=== PATIENT | male | born 1970 | race Caucasian/White ===

== ENCOUNTER 2025-03-23 11:57 | Emergency (ER) | payer SELFPAY ==
[2025-03-23 12:01] VITALS: BP 156/93; PULSE 77; RESP 12; TEMP 36.9; O2SAT 98; BMI 33.8
--- NOTE | 2025-03-23 12:04 | EKG12_ITS ---
Test Reason : CP Blood Pressure : */* mmHG Vent. Rate : 69 BPM Atrial Rate : 69 BPM P-R Int : 182 ms QRS Dur : 100 ms QT Int : 366 ms P-R-T Axes : 42 2 24 degrees QTcB Int : 392 ms Normal sinus rhythm Septal infarct , age undetermined Abnormal ECG Confirmed by DRAKE ARANDA, MENDOZA ([id number]), video editor RISA LATHAM ([id number]) on 03/25/2025 6:09:34 AM Referred By: EDGARDO/MARYCARMEN Confirmed By: MENDOZA JUAN MD
--- NOTE | 2025-03-23 12:04 | RAD_ITS ---
PROCEDURE: CHEST PA AND LATERAL 03/23/2025 REASON FOR EXAM: CHEST PAIN TECHNIQUE: CHEST PA AND LATERAL FINDINGS: The heart is normal in size. The lungs are clear. No acute osseous abnormalities. RAD/Chest PA and Lateral IMPRESSION: NO ACUTE FINDINGS. Reading Location: [id number]
[2025-03-23 12:14] LABS: Hematocrit 44.1 % (40-54); Hemoglobin 15.1 g/dL (13.0-16.5); Immature Granulocytes Count 0.040 X10^3/uL (0.0-0.0); Mean Corp Hgb Conc 34.2 g/dL (32-36); Mean Corpuscular Volume 90.9 fL (80-94); Mean Platelet Vol. 10.9 fl (6.2-12.0); NRBC Flagged by Analyzer 0 % (0-5); Platelet Count 264 K/mm3 (150-450); RBC Distribution Width CV 12.8 % (11.6-14.6); RBC Distribution Width SD 42.5 fl (35.1-43.9); Red Blood Count 4.85 M/mm3 (4.6-6.2); White Blood Count 7.0 K/mm3 (4.4-11.0)
--- NOTE | 2025-03-23 12:29 | ED.VIS.CHEST ---
HPI History of Present Illness Chief Complaint: Chest Pain Narrative Narrative: Patient is a 55-year-old male presenting to the emergency department for chest pain that started today. Patient has a prior history of an AK. He states that he was on the bus where other people were smoking marijuana and he thinks it exacerbated his allergies. States that he initially developed shortness of breath which felt typical of his allergies and then developed left sided chest pain that he describes as tightness. He denies any radiation of the pain anywhere. Denies any pressure-like pain. States that EMS gave him aspirin and nitro and he is now having improvement of his pain. He denies fever, chills, abdominal pain, nausea, vomiting, diarrhea. Denies any diaphoresis. States that sometimes he develops chest pain like this when he gets anxious. PFSH PFSH Medical History no medical history Home Medications ?Medication ?Instructions ?Recorded ?Last Taken ?Type atorvastatin 80 mg tablet 80 mg PO DAILY 03/23/25 03/23/25 History escitalopram oxalate 10 mg tablet 10 mg PO DAILY 03/23/25 Unknown History ezetimibe 10 mg tablet 10 mg PO DAILY 03/23/25 Unknown History lisinopril 40 mg tablet 40 mg PO DAILY 03/23/25 03/23/25 History metoprolol succinate 50 mg 50 mg PO DAILY 03/23/25 03/23/25 History tablet,extended release 24 hr omeprazole 20 mg tablet,delayed 20 mg PO BID 03/23/25 03/23/25 History release Allergy/AdvReac Type Severity Reaction Status Date / Time No Known Allergies Allergy Verified 03/23/25 12:21 Family History no significant family his Surgical History no surgical history Social History Smoking Status: Former smoker ROS ROS ED ROS Narrative see HPI EXAM Physical Exam Narrative Exam Narrative: Vital signs: Reviewed General: Alert and oriented. No acute distress HEENT: Head is normocephalic and atraumatic, sinuses nontender, pupils equal round and reactive. Nares are patent. Oropharynx and throat exams normal. Neck: Supple without lymphadenopathy nontender Cardiovascular: Regular rate and rhythm, no murmurs. No rubs or gallops. Normal S1 and S2 Respiratory: Clear to auscultation bilaterally. No wheezes, rales, rhonchi Abdominal: Soft and nontender. Normal bowel sounds. No guarding or rebound. Nonsurgical abdomen Extremities: No tenderness. No bruising. Normal range of motion. Normal sensation. Skin: No rash or redness. Neurological: Cranial nerves II through XII are grossly intact. Normal strength and sensation. Normal cerebellar function The rest of the physical exam is unremarkable Const Vital Signs: 03/23/25 12:01 03/23/25 12:58 03/23/25 13:30 Temperature 98.4 F Temperature Source Oral Pulse Rate 77 62 64 Respiratory Rate 12 18 15 Blood Pressure 156/93 H 115/77 134/84 H Blood Pressure Mean 114 89 100 Pulse Ox 98 95 94 Oxygen Delivery Method Room Air Room Air 03/23/25 15:06 Temperature 98.7 F Temperature Source Pulse Rate 71 Respiratory Rate 16 Blood Pressure 123/77 H Blood Pressure Mean 92 Pulse Ox 100 Oxygen Delivery Method MDM MDM MDM Narrative Medical decision making narrative: Patient is a 55-year-old male presenting to the emergency department for chest pain. Patient was seen and examined. Vitals are stable. Patient resting in bed comfortably in no acute distress. Differential includes but is not limited to: ACS, pneumonia, asthma exacerbation, pneumothorax, less likely aortic dissection or PE No tachycardia or hypoxia to suspect PE. No significant risk factors. No tearing or ripping chest pain, no significant hypertension on exam. Pulses are equal throughout. Patient has already received aspirin and nitro. EKG shows normal sinus rhythm. There is ST elevation in V2 only that is about 2 mm, but no other notable ST elevation or reciprocal depression. No EKGs to compare to given his prior heart attack. CBC with no leukocytosis and a normal hemoglobin. BMP without significant abnormalities. Initial troponin of 8, reflex of 8. Patient states that the chest pain resolved mostly after the breathing treatment. Chest x-ray shows no acute radiographic abnormalities. 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 Patient discharged from the Emergency Department. I do not feel that the patient's evaluation reveals any acute reason for admission at this time. I instructed them to either follow-up with their primary care physician or promptly return to the Emergency Department for reevaluation should symptoms worsen or new symptoms develop. I explained what symptoms would indicate the need to return to the emergency department. Shared decision making was used. The patient voiced understanding of the treatment plan and is agreeable with it. Clinical impression: Chest pain Lab Data Labs: Laboratory Results - last 24 hr 03/23/25 03/23/25 11:43 13:48 WBC 7.0 RBC 4.85 Hgb 15.1 Hct 44.1 MCV 90.9 MCH 31.1 MCHC 34.2 RDW Std Deviation 42.5 RDW Coeff of Tyler 12.8 Plt Count 264 MPV 10.9 Immature Gran % (Auto) 0.600 Neut % (Auto) 62.6 Lymph % (Auto) 25.1 Stephens % (Auto) 8.1 Eos % (Auto) 3.3 Baso % (Auto) 0.3 Absolute Neuts (auto) 4.4 Absolute Lymphs (auto) 1.76 Nucleated RBC % 0 Sodium 138 Potassium 3.7 Chloride 100 Carbon Dioxide 23.9 Anion Gap 14 BUN 13 Creatinine 0.97 Estim Creat Clear Calc 106.64 Est GFR (MDRD) Non-Af 93 BUN/Creatinine Ratio 13.8 Glucose 130 H Calcium 9.9 Troponin T High Sens 8 Troponin T Hi Sens 2 Hr 8 Radiography Diagnostic Testing: Clinical Impression(s) from Imaging Studies Chest X-Ray 03/23/25 12:04 IMPRESSION: NO ACUTE FINDINGS. Reading Location: [facility] Discharge Plan Triage Chief Complaint: Chest Pain ED Provider: Ailyn Tejada Dx/Rx/DC Orders Clinical Impression: Chest pain Instructions: ED Chest Pain, Uncertain Cause Prescriptions: No Action atorvastatin 80 mg tablet 80 mg PO DAILY escitalopram oxalate 10 mg tablet 10 mg PO DAILY ezetimibe 10 mg tablet 10 mg PO DAILY lisinopril 40 mg tablet 40 mg PO DAILY metoprolol succinate 50 mg tablet extended release 24 hr 50 mg PO DAILY omeprazole 20 mg tablet,delayed release (DR/EC) 20 mg PO BID Primary Care Provider: YUMIKO CAMPBELL Referrals: YUMIKO CAMPBELL [Other] Dr. Pearson [Other] - 2 Days Activity Restrictions/Additional Instructions: Please follow-up with your solar energy engineer as soon as possible. Your evaluation in the Emergency Department did not reveal any acute reason for admission. However, I want to emphasize that you may be early in the course of a disease process or illness even if it is not present. For this reason you should follow-up within 24 hours for reevaluation with either your primary care physician or if necessary back here in the Emergency Department. You should return to the Emergency Department immediately if your symptoms worsen or new symptoms develop. Print Language: Greenlandic Disposition Disposition: Home, Self Care Discharge Date/Time: 03/23/25 15:07
[2025-03-23 12:34] LABS: Anion Gap 14 (5-15); BUN 13 mg/dL (4-19); BUN/Creat Ratio 13.8 RATIO (10-20); Calcium,Total 9.9 mg/dL (7.6-11.0); Carbon Dioxide 23.9 mmol/L (21.0-32.0); Chloride 100 mmol/L (98-108); Estimated Creatinine Clearance 106.64 ml/min (50-250); Glucose 130 mg/dL (70-99); Potassium 3.7 mmol/L (3.3-5.1); Troponin T High Sensitivity 8 ng/L (<=22)
[2025-03-23 12:58] VITALS: BP 115/77; PULSE 62; RESP 18; O2SAT 95
[2025-03-23 13:30] VITALS: BP 134/84; PULSE 64; RESP 15; O2SAT 94
[2025-03-23 14:21] LABS: Troponin T High Sens 2 HR 8 ng/L (<=22)
[2025-03-23 15:06] VITALS: BP 123/77; PULSE 71; RESP 16; TEMP 37.1; O2SAT 100
== END 2025-03-23 15:07 | disposition home or self-care (01) ==
PROVIDERS: Emergency Provider Student in an Organized Health Care Education/Training Program; Visit Provider Student in an Organized Health Care Education/Training Program
DX: R07.89 Other chest pain (principal); I25.2 Old myocardial infarction; Z87.891 Personal history of nicotine dependence
CPT/HCPCS: 71046; 80048; 84484; 85025; 93005; 94640; 99285; A4216